=== PATIENT | female | born 1965 | race Caucasian/White ===

== ENCOUNTER 2021-08-03 13:32 | Outpatient (CLI) | payer BC | END 2021-08-03 13:33 | disposition home or self-care (01) | LOC: CSHMAMMO 13:32 | PROVIDERS: ATTEND Obstetrics & Gynecology | DX: Z12.31 Encounter for screening mammogram for malignant neoplasm of breast (principal); Z80.3 Family history of malignant neoplasm of breast | CPT/HCPCS: 77063; 77067 ==

== ENCOUNTER 2022-08-23 13:35 | Outpatient (CLI) | payer BC | END 2022-08-23 13:36 | disposition home or self-care (01) | LOC: CSHMAMMO 13:35 | PROVIDERS: ATTEND Obstetrics & Gynecology | DX: Z12.31 Encounter for screening mammogram for malignant neoplasm of breast (principal); Z80.3 Family history of malignant neoplasm of breast | CPT/HCPCS: 77063; 77067 ==

== ENCOUNTER 2023-08-25 13:27 | Outpatient (CLI) | payer BC | END 2023-08-25 13:28 | disposition home or self-care (01) | LOC: CSHMAMMO 13:27 | PROVIDERS: ATTEND Obstetrics & Gynecology | DX: Z12.31 Encounter for screening mammogram for malignant neoplasm of breast (principal); Z80.3 Family history of malignant neoplasm of breast | CPT/HCPCS: 77063; 77067 ==

== ENCOUNTER 2024-09-18 15:00 | Outpatient (CLI) | payer BC | END 2024-09-18 15:01 | disposition home or self-care (01) | LOC: CSHMAMMO 15:00 | PROVIDERS: ATTEND Family Medicine | DX: Z12.31 Encounter for screening mammogram for malignant neoplasm of breast (principal); Z80.3 Family history of malignant neoplasm of breast | CPT/HCPCS: 77063; 77067 ==